=== PATIENT | female | born 1955 | race Caucasian/White ===

== ENCOUNTER 2017-09-28 10:28 | Inpatient (IN) | payer BC ==
[2017-09-28] MEDS: TRANEXAMIC ACID 1,000 MG in DEXTROSE 5% 100 ML IVPB ×2 (06:00→11:00)
[2017-09-28] MEDS: CEFAZOLIN 2 GM/50 ML (PMX) 50 ML IVPB (06:00)
[~2017-09-28 10:28] MED LIST: CEFAZOLIN 1 GM INJ
[2017-09-28 11:41] LABS: ADD MAN DIFF? NO
[2017-09-28 11:47] LABS: BASOPHILS % 0.3 % (0.0-2.0); EOSINOPHILS # 0.1 10^3/ul (0.0-0.5); EOSINOPHILS % 0.9 % (0.0-7.0); HEMATOCRIT 37.6 % (37.0-47.0); HEMOGLOBIN 12.5 g/dl (12.0-16.0); LYMPHOCYTES # 1.1 10^3/ul (0.8-2.9); LYMPHOCYTES % 16.6 % (15.0-51.0); MEAN CORPUSCULAR HEMOGLOBIN 31.5 pg (29.0-33.0); MEAN CORPUSCULAR HGB CONC 33.2 g/dl (32.0-37.0); MEAN CORPUSCULAR VOLUME 94.7 fl (82.0-101.0); MEAN PLATELET VOLUME 9.6 fl (7.4-10.4); MONOCYTE # 0.4 10^3/ul (0.3-0.9); MONOCYTES % 6.6 % (0.0-11.0); NEUTROPHIL # 4.8 10^3/ul (1.6-7.5); NEUTROPHILS % 75.3 % (39.0-77.0); PLATELET COUNT 155 10^3/UL (140-415); RED BLOOD COUNT 3.97 10^6/ul (4.20-5.40); RED CELL DISTRIBUTION WIDTH 13.4 % (11.5-14.5)
[2017-09-28 11:47] LABS: WHITE BLOOD COUNT 6.3 10^3/ul (4.8-10.8)
[2017-09-28 12:11] LABS: ANION GAP 12 (8-16); BLOOD UREA NITROGEN 22 mg/dl (7-20); CALCIUM 9.7 mg/dl (8.4-10.2); CARBON DIOXIDE 30 mmol/L (21-31); CHLORIDE 104 mmol/L (97-110); CREATININE 0.85 mg/dl (0.44-1.00); GLUCOSE 123 mg/dl (70-220); POTASSIUM 3.8 mmol/L (3.5-5.1); SODIUM 142 mmol/L (135-144)
[2017-09-28] MEDS ORDERED: ROCURONIUM 50 MG INJ ×2 (12:39→13:44)
[2017-09-28] MEDS ORDERED: PROPOFOL 20 ML (12:39)
[2017-09-28] MEDS ORDERED: MIDAZOLAM 1 MG/ML 2 ML INJ (12:39)
[2017-09-28] MEDS ORDERED: LIDOCAINE 1% (MDV) 20 ML INJ (12:40)
[2017-09-28] MEDS ORDERED: ONDANSETRON 4 MG INJ (13:34)
[2017-09-28] MEDS ORDERED: FAMOTIDINE 20 MG INJ (13:34)
[2017-09-28] MEDS ORDERED: PHENYLephrine (100 MCG/ML) 5ML SYG (13:34)
[2017-09-28] MEDS ORDERED: DEXAMETHASONE 4 MG/ML 1 ML INJ (13:34)
[2017-09-28] MEDS ORDERED: METOCLOPRAMIDE 10 MG INJ (14:00)
[2017-09-28] MEDS ORDERED: DIPHENHYDRAMINE 50 MG INJ IV (16:30)
[2017-09-28] MEDS ORDERED: BETHANECHOL 25 MG TAB PO (16:30)
[2017-09-28] MEDS ORDERED: CEFAZOLIN 1 GM/50 ML (PMX) 50 ML IVPB (16:30)
[2017-09-28] MEDS ORDERED: ONDANSETRON 4 MG INJ IV (16:30)
[2017-09-28] MEDS ORDERED: NA PHOSPHATE/BIPHOS 133 ML ENEMA PR (16:30)
[2017-09-28] MEDS ORDERED: OXYCODONE/ACETAMINOPHEN (5/325) TAB PO (16:30)
[2017-09-28] MEDS ORDERED: HYDROCODONE/APAP (5/325) TAB PO (16:30)
[2017-09-28] MEDS ORDERED: TRIMETHOBENZAMIDE 100 MG/ML VIAL IM (16:30)
[2017-09-28] MEDS ORDERED: NACL 0.9% 3 ML SYG IV (16:30)
[2017-09-28] MEDS ORDERED: ZOLPIDEM 5 MG TAB PO (16:30)
[2017-09-28] MEDS ORDERED: BISACODYL 10 MG SUPP PR (16:30)
[2017-09-28] MEDS ORDERED: KETOROLAC 15 MG INJ IV (16:30)
[2017-09-28] MEDS ORDERED: MAGNESIUM HYDROXIDE 30ML CUP PO (16:30)
[2017-09-28] MEDS ORDERED: ASPIRIN (EC) 325 MG TAB PO (16:30)
[2017-09-28] MEDS ORDERED: HYDROmorphONE (0.2 MG/ML) 10ML SYG IV (16:36)
[2017-09-28] MEDS ORDERED: ACETAMINOPHEN 1000MG/100ML IV 100 ML (16:36)
[2017-09-28 16:43] LABS: ADD MAN DIFF? NO
[2017-09-28 16:46] LABS: BASOPHILS % 0.3 % (0.0-2.0); EOSINOPHILS % 0.1 % (0.0-7.0); HEMOGLOBIN 11.9 g/dl (12.0-16.0); LYMPHOCYTES # 0.9 10^3/ul (0.8-2.9); LYMPHOCYTES % 12.8 % (15.0-51.0); MEAN CORPUSCULAR HEMOGLOBIN 31.2 pg (29.0-33.0); MEAN CORPUSCULAR HGB CONC 33.1 g/dl (32.0-37.0); MEAN CORPUSCULAR VOLUME 94.2 fl (82.0-101.0); MEAN PLATELET VOLUME 9.6 fl (7.4-10.4); MONOCYTE # 0.1 10^3/ul (0.3-0.9); MONOCYTES % 1.8 % (0.0-11.0); NEUTROPHIL # 6.1 10^3/ul (1.6-7.5); PLATELET COUNT 153 10^3/UL (140-415); RED BLOOD COUNT 3.82 10^6/ul (4.20-5.40); RED CELL DISTRIBUTION WIDTH 13.6 % (11.5-14.5)
[2017-09-28 16:46] LABS: WHITE BLOOD COUNT 7.2 10^3/ul (4.8-10.8)
[2017-09-28] MEDS: HYDROmorphONE 0.5 MG/0.5 ML SYG IV (16:59)
[2017-09-28] MEDS: ACETAMINOPHEN 1000MG/100ML IV 100 ML IVPB (17:01)
[2017-09-28 17:03] LABS: ANION GAP 10 (8-16); CARBON DIOXIDE 28 mmol/L (21-31); CHLORIDE 105 mmol/L (97-110); GLUCOSE 208 mg/dl (70-220)
[2017-09-28 17:04] LABS: BLOOD UREA NITROGEN 18 mg/dl (7-20); CALCIUM 8.9 mg/dl (8.4-10.2); CREATININE 0.75 mg/dl (0.44-1.00); SODIUM 140 mmol/L (135-144)
[2017-09-28 17:05] LABS: POTASSIUM 3.3 mmol/L (3.5-5.1)
[2017-09-28] MEDS ORDERED: SUGAMMADEX SODIUM 200 MG/2 ML VIAL IV (17:10)
[2017-09-28] MEDS: ONDANSETRON 4 MG INJ IV (17:33)
[2017-09-28] MEDS: ASPIRIN (EC) 325 MG TAB PO ×2 (17:33→18:27)
[2017-09-28] MEDS: POTASSIUM CHLORIDE (SR) 20 MEQ TAB PO (17:47)
[2017-09-28] MEDS: DIPHENHYDRAMINE 50 MG INJ IV (18:34)
[2017-09-28] MEDS: SENNA/DOCUSATE NA (8.6MG/50MG) TAB PO (21:48)
[2017-09-28] MEDS: CEFAZOLIN 1 GM/50 ML (PMX) 50 ML IVPB (21:48)
[2017-09-28] MEDS: OXYCODONE/ACETAMINOPHEN (5/325) TAB PO (21:52)
[2017-09-28] MEDS: METOPROLOL 50 MG TAB PO (23:15)
[2017-09-29 05:11] LABS: HEMATOCRIT 33.1 % (37.0-47.0); MEAN CORPUSCULAR HEMOGLOBIN 31.3 pg (29.0-33.0); MEAN CORPUSCULAR HGB CONC 33.2 g/dl (32.0-37.0); MEAN CORPUSCULAR VOLUME 94.3 fl (82.0-101.0); PLATELET COUNT 166 10^3/UL (140-415); RED BLOOD COUNT 3.51 10^6/ul (4.20-5.40); RED CELL DISTRIBUTION WIDTH 13.8 % (11.5-14.5)
[2017-09-29] MEDS: OXYCODONE/ACETAMINOPHEN (5/325) TAB PO (05:18)
[2017-09-29 05:32] LABS: ADD MAN DIFF? YES; POSITIVE DIFF @See below
[2017-09-29] MEDS: CEFAZOLIN 1 GM/50 ML (PMX) 50 ML IVPB ×2 (05:46→13:20)
[2017-09-29 05:47] LABS: ANION GAP 12 (8-16); BLOOD UREA NITROGEN 17 mg/dl (7-20); CARBON DIOXIDE 28 mmol/L (21-31); CHLORIDE 105 mmol/L (97-110); CREATININE 0.82 mg/dl (0.44-1.00); GLUCOSE 109 mg/dl (70-220); SODIUM 141 mmol/L (135-144)
[2017-09-29] MEDS ORDERED: AMIODARONE 200 MG TAB PO (09:00)
[2017-09-29] MEDS: SENNA/DOCUSATE NA (8.6MG/50MG) TAB PO ×2 (09:19→21:55)
[2017-09-29] MEDS: AMLODIPINE 5 MG TAB PO (09:21)
[2017-09-29] MEDS: AMIODARONE 200 MG TAB PO (09:21)
[2017-09-29] MEDS: METOPROLOL 50 MG TAB PO ×2 (09:21→21:57)
[2017-09-29 10:03] LABS: ANISOCYTOSIS 1+ (0-0); BAND NEUTROPHILS #M 0.2 10^3/ul (0.0-0.6); BAND NEUTROPHILS % (M) 3 % (0-4); LYMPHOCYTES #M 1.1 10^3/ul (0.8-2.9); LYMPHOCYTES % (M) 13 % (15-51); METAMYELOCYTES %M 1 % (0-0); MONOCYTE #M 0.7 10^3/ul (0.3-0.9); MONOCYTES % (M) 8 % (0-11); PLATELET ESTIMATE NORMAL; POIKILOCYTOSIS 1+ (0-0); POLYCHROMASIA 1+ (0-0); SEG NEUT #M 6.6 10^3/ul (1.6-7.5); SEGMENTED NEUTROPHILS (M) % 73 % (39-77); SMUDGE%M 3 % (0-0)
[2017-09-29 10:52] LABS: ADD UMIC YES; UR ASCORBIC ACID NEGATIVE (NEGATIVE); UR BILIRUBIN (Dip) NEGATIVE (NEGATIVE); UR BLOOD (Dip) 2+ mg/dL (NEGATIVE); UR BUDDING YEAST MODERATE /HPF (NONE SEEN); UR CLARITY CLEAR (CLEAR); UR COLOR YELLOW (YELLOW); UR GLUCOSE (Dip) NEGATIVE (NEGATIVE); UR KETONES (Dip) NEGATIVE (NEGATIVE); UR LEUKOCYTE ESTERASE (Dip) 2+ Leu/ul (NEGATIVE); UR NITRITE (Dip) NEGATIVE (NEGATIVE); UR RBC 33 /HPF (0-5); UR SPECIFIC GRAVITY (Dip) 1.018 (1.003-1.030); UR TOTAL PROTEIN (Dip) NEGATIVE (NEGATIVE); UR UROBILINOGEN (Dip) NEGATIVE (NEGATIVE); UR WBC 14 /HPF (0-5)
[2017-09-29] MEDS: HYDROCODONE/APAP (5/325) TAB PO ×2 (13:19→20:14)
[2017-09-29 14:07] LABS: INR 1.05; PROTIME 13.8 Sec (11.9-14.9); PT RATIO 1.1
[2017-09-29 14:08] LABS: PARTIAL THROMBOPLASTIN TIME 24.7 Sec (25.0-35.0)
[2017-09-29] MEDS: RIVAROXABAN 20 MG TABLET PO (17:57)
[2017-09-30] MEDS: HYDROCODONE/APAP (5/325) TAB PO ×3 (04:28→13:56)
[2017-09-30 05:37] LABS: ADD MAN DIFF? NO
[2017-09-30 05:44] LABS: BASOPHILS % 0.3 % (0.0-2.0); EOSINOPHILS # 0.1 10^3/ul (0.0-0.5); EOSINOPHILS % 1.5 % (0.0-7.0); HEMATOCRIT 32.1 % (37.0-47.0); HEMOGLOBIN 10.3 g/dl (12.0-16.0); LYMPHOCYTES % 13.8 % (15.0-51.0); MEAN CORPUSCULAR HGB CONC 32.1 g/dl (32.0-37.0); MEAN CORPUSCULAR VOLUME 96.7 fl (82.0-101.0); MEAN PLATELET VOLUME 9.6 fl (7.4-10.4); MONOCYTE # 0.6 10^3/ul (0.3-0.9); MONOCYTES % 8.5 % (0.0-11.0); NEUTROPHIL # 5.6 10^3/ul (1.6-7.5); NEUTROPHILS % 75.4 % (39.0-77.0); PLATELET COUNT 136 10^3/UL (140-415); RED BLOOD COUNT 3.32 10^6/ul (4.20-5.40); RED CELL DISTRIBUTION WIDTH 13.7 % (11.5-14.5)
[2017-09-30 05:44] LABS: WHITE BLOOD COUNT 7.4 10^3/ul (4.8-10.8)
[2017-09-30 06:16] LABS: ANION GAP 10 (8-16); BLOOD UREA NITROGEN 16 mg/dl (7-20); CALCIUM 8.5 mg/dl (8.4-10.2); CARBON DIOXIDE 31 mmol/L (21-31); CHLORIDE 103 mmol/L (97-110); CREATININE 0.76 mg/dl (0.44-1.00); GLUCOSE 129 mg/dl (70-220); POTASSIUM 3.6 mmol/L (3.5-5.1); SODIUM 140 mmol/L (135-144)
[2017-09-30] MEDS: SENNA/DOCUSATE NA (8.6MG/50MG) TAB PO (08:11)
[2017-09-30] MEDS: AMIODARONE 200 MG TAB PO (08:12)
[2017-09-30] MEDS: METOPROLOL 50 MG TAB PO (08:12)
[2017-09-30] MEDS: AMLODIPINE 5 MG TAB PO (08:12)
[2017-09-30] MEDS ORDERED: MAGNESIUM HYDROXIDE 30ML CUP PO (21:00)
[2017-10-03] MEDS ORDERED: AMIODARONE 200 MG TAB PO (09:00)
== END 2017-09-30 14:36 | disposition home health service (06) | DRG 517 ==
LOC: REC 10:28 → MS1 09-30 04:35
PROC: 0RWJ0JZ Revision of Synthetic Substitute in Right Shoulder Joint, Open Approach (ICD-10-PCS; principal; 2017-09-28 12:30)
DX: T84.038A Mechanical loosening of other internal prosthetic joint, initial encounter (principal); T84.84XA Pain due to internal orthopedic prosthetic devices, implants and grafts, initial encounter; I12.9 Hypertensive chronic kidney disease with stage 1 through stage 4 chronic kidney disease, or unspecified chronic kidney disease; I48.0 Paroxysmal atrial fibrillation; J44.9 Chronic obstructive pulmonary disease, unspecified; F17.210 Nicotine dependence, cigarettes, uncomplicated; N18.1 Chronic kidney disease, stage 1; Y83.8 Other surgical procedures as the cause of abnormal reaction of the patient, or of later complication, without mention of misadventure at the time of the procedure; Y92.019 Unspecified place in single-family (private) house as the place of occurrence of the external cause; Z79.01 Long term (current) use of anticoagulants
CPT/HCPCS: 80048; 81001; 85014; 85018; 85025; 85610; 85730; 86850; 86900; 86901; 87070; 87075; 87081; 87086; 88300; 93005; 97110; 97116; 97166; 97535